=== PATIENT | male | born 1975 | race Hispanic/Latino ===

== ENCOUNTER 2018-04-03 13:01 | Emergency (ER) | payer OTHER ==
[~2018-04-03] VITALS: Ht 180.3 cm; Wt 104.3 kg
--- OUTSIDE RECORDS SUMMARY | 2018-04-03 13:04 | XMS REPORT | Summary of Care ---
Author Author [facility] Organization [facility] Address Unknown Phone Unavailable Encounter ERNESTO Sung(ANITA) [id number] Date(s): 02/27/16 - 02/27/16 [facility] [address] [place] [address]- [phone] Discharge Disposition: Home or Self Care Attending Physician: Oxana Hare MD Admitting Physician: Oxana Hare MD Referring Physician: Lee Bazzi MD Vital Signs 1 2 3 Most recent to oldest [Reference Range]: 180.34 cm (02/27/16 5:23 AM) Height 97.9 DegF (02/27/16 11:00 AM) 97.4 DegF (02/27/16 7:01 AM) 98.1 DegF (02/27/16 5:23 AM) Temperature Oral [96.4-99.1 DegF] 128/81 mmHg (02/27/16 11:00 AM) 109/72 mmHg (02/27/16 7:01 AM) Blood Pressure [90-140/60-90 mmHg] 135 mmHg (02/27/16 5:23 AM) Systolic Blood Pressure [90-140 mmHg] 77 mmHg (02/27/16 5:23 AM) Diastolic Blood Pressure [60-90 mmHg] 16 BRMIN (02/27/16 11:00 AM) 16 BRMIN (02/27/16 7:01 AM) 18 BRMIN (02/27/16 5:23 AM) Respiratory Rate [14-20 BRMIN] 58 bpm *LOW* (02/27/16 11:00 AM) 59 bpm *LOW* (02/27/16 7:01 AM) 61 bpm (02/27/16 5:23 AM) Peripheral Pulse Rate [60-100 bpm] 105.955 kg (02/27/16 5:23 AM) Weight 32.58 m2 (02/27/16 5:23 AM) Body Mass Index Problem List No data available for this section Allergies, Adverse Reactions, Alerts Substance Reaction Severity Status NKDA Active Medications Cipro 500 mg oral tablet 500 mg=1 tab, PO, Q12H, X 7 day, # 14 tab, 0 Refill(s) Start Date: 02/27/16 Stop Date: 03/05/16 Status: Ordered Flagyl 500 mg oral tablet 500 mg=1 tab, PO, BID, X 7 day, # 14 tab, 0 Refill(s) Start Date: 02/27/16 Stop Date: 03/05/16 Status: Ordered Lactated Ringers 1,000 mL 1,000 mL, Rate: 75 ml/hr, Infuse over: 13.3 hr, Route: IV, Dosing Weight 105.955 kg, Total Volume: 1,000, Start date: 02/27/16 6:31:00 CDT, Duration: 30 day, St op date: 03/28/16 6:30:00 CDT Start Date: 02/27/16 Stop Date: 02/27/16 Status: Discontinued morphine Sulfate 2 mg, 1 mL, Route: IV, Drug form: INJ, Q4H, Dosing Weight 105.955, kg, PRN Pain Score 4-6, Start date: 02/27/16 6:34:00 CDT, Duration: 30 day, Stop date: 6:33:00 CDT Notes: (Same as:MORPhine Sulfate) Start Date: 02/27/16 Stop Date: 02/27/16 Status: Discontinued morphine Sulfate 4 mg, 2 mL, Route: IV, Drug form: INJ, Q4H, Dosing Weight 105.955, kg, PRN Pain Score 7-10, Start date: 02/27/16 6:35:00 CDT, Duration: 30 day, Stop date: 03/28 6:34:00 CDT Notes: (Same as:MORPhine Sulfate) Start Date: 02/27/16 Stop Date: 02/27/16 Status: Discontinued Zofran 4 mg, 2 mL, Route: IV, Drug form: INJ, Q8H, Dosing Weight 105.955, kg, PRN Nause a, Start date: 02/27/16 6:59:00 CDT, Duration: 30 day, Stop date: 03/28/16 6:58: 00 CDT Notes: (Same as: Zofran) MEDICATION WASTE Product Size: 4 mgProduct Was trish: ___ mg Start Date: 02/27/16 Stop Date: 02/27/16 Status: Discontinued Zofran 4 mg, Route: IV, Q8H, Dosing Weight 105.955, kg, Start date: 02/27/16 8:00:00 CD T, Duration: 30 day, Stop date: 03/28/16 0:00:00 CDT Start Date: 02/27/16 Stop Date: 02/27/16 Status: Canceled Results No data available for this section Immunizations No data available for this section Procedures Procedure Date Related Diagnosis Body Site ACL - Repair of anterior cruciate ligament1 70018 Social History Social History Type Response Substance Abuse Use: None. Sexual Sexually active: Yes. Exercise Exercise duration: 30. Exercise frequency: 1-2 times/week. Exercise type: Walking. Employment/School Status: Employed. Workplace hazards: Heavy lifting/twisting. Alcohol Current, Type Beer. Frequency: 1-2 times per month. Smoking Status Never smoker; Previous treatment: None; Exposure to Tobacco Smoke None; Cigarette Smoking Last 365 Days Unable to obtain; Reg Smoking Cessation Counseling No Assessment and Plan Extracted from: Title: Clinical Document Author: Oxana Hare MD Date: 02/27/16 History and Physical CC:abdominal pain HPI:40 y.o presented to outside ER due to epigastric pain after eating that started 2 days ago associated with diarrhea and some nausea. CT at outside ER demonstrated a borderline dilated appendix to 7mm without surrouding inflammation. He also underwent a GB US that demonstrated no stone/sludge, no wall thickening or percholecystic edema. It was not very distended either. His pain on admission has improved with no nausea, vomiting. He had slighlty elevated AST/ALT in 50s. Alkphos and bilirubin were normal. WBC was normal. A/P: 40 y.o upper abdominal pain with possible biliary dyskinesia vs early appendicitis Discussed options of HIDA scan and lap appendectomy vs observation and empiric treatment with antibiotics for presumed early appendicitis. Given improvement in symptoms patient elected for outpatient observation Will give diet D/c if tolerating diet and pain control 1 week of oral abx for possible early appendicitis If symptoms recurr and more epigastric, HIDA scan to eval for biliary dyskinesia or acalculous cholecystitis. Past Medical/Surgical History No qualifying data available ACL - Repair of anterior cruciate ligament Family History Non-contributory social History Employment/School Details: Status: Employed. Workplace hazards: Heavy lifting/twisting. Sexual Details: Sexually active: Yes. Alcohol Details: Current, Type Beer. Frequency: 1-2 times per month. Exercise Details: Exercise duration: 30. Exercise frequency: 1-2 times/week. Exercise type: Walking. Tobacco Details: Use: Never smoker. Previous treatment: None. Tobacco smoke exposure: None. Did the Patient Smoke Cigarettes Anytime During the Last 365 Days? Unable to obtain. Cessation Counseling Provided? No. Substance Abuse Details: Use: None. Review of Systems A 10 point ROS was negative other than as per HPI. Medication List Active Medications Ordered Lactated Ringers 1,000 mL: 75 ml/hr, IV, Stop: 03/28/16 6:30:00 CDT. morphine Sulfate: 2 mg, 1 mL, IV, Q4H, PRN: Pain Score 4-6. morphine Sulfate: 4 mg, 2 mL, IV, Q4H, PRN: Pain Score 7-10. ondansetron: 4 mg, 2 mL, IV, Q8H, PRN: Nausea. Prescribed ciprofloxacin: 500 mg, 1 tab, PO, Q12H, for 7 day, 14 tab, 0 Refill(s). metroNIDAZOLE: 500 mg, 1 tab, PO, BID, for 7 day, 14 tab, 0 Refill(s). Medications Inactivated in the Last 72 Hours ondansetron: 4 mg, IV, Q8H. Physical Exam General: _NAD HEENT: _Anicteric Cardiovascular: _RRR Respiratory: _Respirations unlabored Abdomen: _soft, non-distended, non-tender Extremities: _no edema Integumentary: _no rash Neurologic: _alert, oriented x3 VitalsTmp(F)[id number] 02/26 11:[id number]--- 02/26 07:[id number]--- 02/26 05:[id number]------ 24 Hr Tmax: 98.1F (36.72c) at 02/26 05:23Vital Signs are the last 5 in the past 48 hours. (no lab data in past 24 hours)
[2018-04-03] MEDS ORDERED: ASPIRIN 81 MG CHEW TAB PO ONE (13:15)
[2018-04-03] MEDS ORDERED: MAGNESIUM/ALUMINUM/SIMETHICONE 30 ML UDC PO ONE (13:30)
[2018-04-03] MEDS ORDERED: LIDOCAINE VISC 2% SOLN 15 ML UDC PO ONE (13:45)
[2018-04-03] MEDS ORDERED: BELLADONNA ALK/PHENOBARBITAL 5 ML UDC PO ONE (13:45)
[2018-04-03 13:56] LABS: CLARITY,URINE CLEAR (CLEAR); COLOR,URINE YELLOW (YELLOW); KETONES,URINE NEGATIVE (NEGATIVE); LEUKOCYTE ESTERASE ,URINE NEGATIVE (NEGATIVE); NITRITE,URINE NEGATIVE (NEGATIVE); PROTEIN,URINE DIPSTICK NEGATIVE (NEGATIVE)
[2018-04-03 13:57] LABS: BILIRUBIN,URINE NEGATIVE (NEGATIVE); URINE UROBILINOGEN 0.2 mg/dL (0.2 - 1)
[2018-04-03 14:09] LABS: BACTERIA,URINE MODERATE /HPF; EPITHELIAL CELLS,URINE MANY /LPF; MUCUS,URINE MODERATE (RARE)
--- NOTE | 2018-04-03 14:28 | Diagnostic Imaging Report ---
EXAMINATION: CHEST 2 VIEWS INDICATION: ^ORDER PLACED BY ^[id number] ^[id number] ^Y COMPARISON: None FINDINGS: PA and lateral views TUBES and LINES: None. LUNGS: Lungs are well inflated. Lungs are clear. There is no evidence of pneumonia or pulmonary edema. PLEURA: No pleural effusion or pneumothorax. HEART AND MEDIASTINUM: The cardiomediastinal silhouette is unremarkable. BONES AND SOFT TISSUES: No acute osseous lesion. Soft tissues are unremarkable. UPPER ABDOMEN: No free air under the diaphragm. IMPRESSION: No acute thoracic abnormality. Signed by: Dr. Jazmín Lane M.D. on 04/03/2018 2:24 PM
[2018-04-03 14:43] LABS: BASOPHILS # (AUTO) 0.1 (0.0-0.1); BASOPHILS % 0.8 % (0.0-1.0); EOSINOPHILS # (AUTO) 0.1 (0.0-0.4); EOSINOPHILS % 1.9 % (0.0-6.0); HEMATOCRIT 49.1 % (38.2-49.6); HEMOGLOBIN 16.3 g/dL (14.0-18.0); LYMPHOCYTES # (AUTO) 1.6 (1.0-3.2); LYMPHOCYTES % 22.1 % (18.0-39.1); MEAN CORPUSCULAR HEMOGLOBIN 29.7 pg (28-32); MEAN CORPUSCULAR HGB CONC 33.2 g/dL (31-35); MEAN CORPUSCULAR VOLUME 89.4 fL (81-99); MONOCYTES # (AUTO) 0.5 (0.2-0.8); MONOCYTES % 7.2 % (4.4-11.3); NEUTROPHILS % 67.6 % (38.7-80.0); PLATELET COUNT 272 x10e3/uL (140-360); RED BLOOD COUNT 5.49 x10e6/uL (4.3-5.7); RED CELL DISTRIBUTION WIDTH 12.4 % (11.7-14.4)
[2018-04-03 14:53] LABS: INR 0.86; PROTHROMBIN TIME 12.5 seconds (11.9-14.5)
[2018-04-03 15:02] LABS: ALANINE AMINOTRANSFERASE 67 IU/L (0-55); ALBUMIN 4.5 g/dL (3.5-5.0); ALBUMIN/GLOBULIN RATIO 1.3 (0.8-2.0); ALKALINE PHOSPHATASE 82 IU/L (40-150); ANION GAP 14.9 mmol/L (8-16); BLOOD UREA NITROGEN 19 mg/dL (7-26); BUN/CREATININE RATIO 22 (6-25); CALCIUM 9.9 mg/dL (8.4-10.2); CARBON DIOXIDE 25 mmol/L (22-29); CHLORIDE 99 mmol/L (98-107); CREATINE KINASE 69 IU/L (30-200); CREATININE, SERUM 0.85 mg/dL (0.72-1.25); EST GLOMERULAR FILTRATION RATE > 60 ML/MIN (60-); GLUCOSE 89 mg/dL (74-118); LIPASE 21 U/L (8-78); POTASSIUM 3.9 mmol/L (3.5-5.1); SODIUM 135 mmol/L (136-145)
[2018-04-03 15:25] LABS: THYROID STIMULATING HORMONE 0.664 uIU/mL (0.350-4.940)
== END 2018-04-03 16:06 | disposition home or self-care (01) ==
LOC: ER 13:01
DX: R10.13 Epigastric pain (principal); K29.00 Acute gastritis without bleeding
CPT/HCPCS: 36415; 71046; 80053; 81001; 82150; 82550; 82553; 83690; 84443; 84484; 85025; 85610; 85730; 87086; 93005; 99284

== ENCOUNTER 2020-07-12 14:53 | Emergency (ER) | payer SELFPAY ==
[~2020-07-12] VITALS: Ht 180.3 cm; Wt 88.5 kg
[2020-07-12] MEDS ORDERED: FAMOTIDINE 20 MG/2 ML VIAL IV ONE (17:12)
[2020-07-12] MEDS ORDERED: FAMOTIDINE20 MG PO (17:39)
[2020-07-12] MEDS ORDERED: PANTOPRAZOLE SO40 MG PO (17:40)
[2020-07-12 17:47] VITALS: BP 117/70
== END 2020-07-12 17:51 | disposition home or self-care (01) ==
LOC: FSED 16:00
DX: R10.13 Epigastric pain (principal); K29.70 Gastritis, unspecified, without bleeding; D64.9 Anemia, unspecified
CPT/HCPCS: 80048; 80076; 81003; 85025; 99283

== ENCOUNTER 2021-03-13 21:26 | Emergency (ER) | payer SELFPAY ==
[~2021-03-13] VITALS: Ht 180.3 cm; Wt 94.8 kg
[~2021-03-13 21:26] MED LIST: FAMOTIDINE20 MG PO; PANTOPRAZOLE SO40 MG PO
[2021-03-13] MEDS ORDERED: ULTRAM50 MG PO (21:50)
[2021-03-13] MEDS ORDERED: ACYCLOVIR800 MG PO (21:50)
[2021-03-13] MEDS ORDERED: KETOROLAC TROMETHAMINE 60 MG/2 ML VIAL IM ONE (22:00)
[2021-03-13] MEDS ORDERED: KETOROLAC TROMETHAMINE 60 MG/2 ML VIAL ONE (22:06)
== END 2021-03-13 22:30 | disposition home or self-care (01) ==
LOC: FSED 21:45
DX: B02.9 Zoster without complications (principal)
CPT/HCPCS: 99282; J1885

== ENCOUNTER 2021-03-17 17:56 | Emergency (ER) | payer SELFPAY ==
[~2021-03-17] VITALS: Ht 180.3 cm; Wt 94.8 kg
[~2021-03-17 17:56] MED LIST changes: +ACYCLOVIR800 MG PO; +ULTRAM50 MG PO
[2021-03-17] MEDS ORDERED: NEURONTIN100 MG PO (18:18)
[2021-03-17] MEDS ORDERED: ONDANSETRON ODT4 MG PO (18:18)
== END 2021-03-17 18:35 | disposition home or self-care (01) ==
LOC: FSED 18:00
DX: R42 Dizziness and giddiness (principal); R11.0 Nausea; B02.9 Zoster without complications
CPT/HCPCS: 99282

== ENCOUNTER 2021-05-06 08:23 | Emergency (ER) | payer SELFPAY ==
[~2021-05-06] VITALS: Ht 180.3 cm; Wt 94.8 kg
[~2021-05-06 08:23] MED LIST changes: +NEURONTIN100 MG PO; +ONDANSETRON ODT4 MG PO
[2021-05-06] MEDS ORDERED: KETOROLAC TROMETHAMINE 60 MG/2 ML VIAL IM ONE (09:15)
[2021-05-06] MEDS ORDERED: KETOROLAC TROMETHAMINE 60 MG/2 ML VIAL ONE (09:15)
== END 2021-05-06 09:16 | disposition home or self-care (01) ==
LOC: ER 08:30
DX: B02.29 Other postherpetic nervous system involvement (principal)
CPT/HCPCS: 99282; J1885